=== PATIENT | male | born 1955 | race Caucasian/White ===

== ENCOUNTER → 2017-12-26 | Outpatient (CLI) | payer OTHER ==
[~2017-12-26] MED LIST: CHOL500050 PO; HYDR-3240 PO; LEVO137T2 PO; TAMS-11 PO; [UNRECOGNIZED DRUG - REMARK]
== END | disposition home or self-care (01) ==
LOC: CFH 09:56
PROVIDERS: ATTEND Family Medicine
DX: J44.9 Chronic obstructive pulmonary disease, unspecified (principal)
CPT/HCPCS: 71250

== ENCOUNTER 2019-02-18 16:27 | Inpatient (IN) | payer OTHER ==
[~2019-02-18] VITALS: Ht 177.8 cm; Wt 82.0 kg
--- NOTE | 2019-02-18 17:15 | NUR ---
Patient ambulates to room at this time from [facility]
[2019-02-18] MEDS ORDERED: SODIUM CHLORIDE 0.9% 1,000 ML IV ONE (17:29)
[2019-02-18] MEDS ORDERED: ONDANSETRON 2MG/ML, 2ML IVPush ONE (17:30)
[2019-02-18] MEDS ORDERED: ONDANSETRON 2MG/ML, 2ML ONE (17:40)
--- NOTE | 2019-02-18 17:49 | NUR ---
IVF INFUSING, PT MEDICATED WITH ZOFRAN PER ORDERS. UNDERSTANDS POC.
--- NOTE | 2019-02-18 18:00 | NUR ---
SPO2 DROPPED TO 89% ON RA. PT HAS HX COPD. PLACED ON O2 2L NC.
[2019-02-18] MEDS ORDERED: SODIUM CHLORIDE FLUSH 10ML SYR IVF ONE (18:30)
--- NOTE | 2019-02-18 18:35 | NUR ---
PT AMBULATED TO BR WITHOUT DIFFICULTY. INSTRUCTED ON CLEAN CATCH URINE SAMPLE.
[2019-02-18 18:37] LABS: ALANINE AMINOTRANSFERASE 39 U/L (12-78); ALBUMIN 3.1 g/dL (3.4-5.0); ANION GAP 9 mmol/L (5-15); CALCIUM 8.6 mg/dL (8.5-10.1); CHLORIDE 94 mmol/L (98-107)
[2019-02-18 18:40] LABS: ALKALINE PHOSPHATASE 72 U/L (45-117); BILIRUBIN,TOTAL 0.8 mg/dL (0.2-1.0); TOTAL PROTEIN 7.3 g/dL (6.4-8.2)
--- NOTE | 2019-02-18 19:05 | NUR ---
PT TO CT VIA [facility].
[2019-02-18 19:06] LABS: MICROSCOPIC INDICATED
[2019-02-18 19:12] LABS: MEAN CORPUSCULAR HEMOGLOBIN 30.9 pg (27.5-34.5); MEAN CORPUSCULAR HGB CONC 33.4 g/dL (33.2-36.2); MEAN CORPUSCULAR VOLUME 92.6 fL (81-97); MEAN PLATELET VOLUME 10.1 fL (7.4-10.4); PLATELET COUNT 153 x10^3/uL (130-400); RED BLOOD COUNT 5.87 x10^6/uL (4.38-5.82); RED CELL DISTRIBUTION WIDTH 13.9 % (9.4-14.8)
[2019-02-18 19:16] LABS: MD YES
[2019-02-18 19:19] LABS: CULTURE INDICATED? YES
[2019-02-18 19:20] LABS: BAND#(MANUAL) 1.54 x10^3/uL; BANDS%(MANUAL) 29 % (0-7); LYMPH#(MANUAL) 0.64 x10^3/uL (1-3.4); LYMPHS% (MANUAL) 12 % (22-44); MONOS#(MANUAL) 1.43 x10^3/uL (0.3-2.7); MONOS% (MANUAL) 27 % (2-9); REACTIVE LYMPHS # (MANUAL) 0.05 x10^3/uL (0-0); REACTIVE LYMPHS % (MANUAL) 1 % (0-0); SEG#(MANUAL) 1.64 x10^3/uL (1.8-6.8); SEGS% (MANUAL) 31 % (42-75)
[2019-02-18 19:21] LABS: <PLATELET ESTIMATE> ADEQUATE; <RBC MORPHOLOGY> NORMAL; LARGE PLATELETS 1+; PMNS WITH VACUOLES 1+
[2019-02-18] MEDS ORDERED: OMNIPAQUE 350 MG/ML, 100ML BOTTLE ONE (19:24)
--- NOTE | 2019-02-18 20:45 | NUR ---
ATTEMPTED NGT INSERTION TO R NARE BUT PT HAD ABOUT 800ML OF GREEN EMESIS AND DIDN'T TOLERATE INSERTION. ALLOWED PT TO REST FOR 10MIN, THEN NGT INSERTED TO L NARE WITHOUT DIFFICULTY, ATTACHED TO LIWS. AT BS.
--- NOTE | 2019-02-18 21:00 | NUR ---
XR AT BS.
--- NOTE | 2019-02-18 21:00 | NUR ---
HOSPITALIST AT BS.
[2019-02-18 21:30] VITALS: BP 132/86
[2019-02-18] MEDS ORDERED: morphine SULFATE 10 MG/ML, 1ML IVPush PRN (22:00)
[2019-02-18] MEDS ORDERED: PROMETHAZINE 25 MG/ML, 1ML IM PRN (22:00)
[2019-02-18] MEDS ORDERED: ONDANSETRON 2MG/ML, 2ML IVPush PRN (22:00)
[2019-02-18] MEDS ORDERED: BENZOCAINE AEROSOL SPRAY 20%, 60ML TP PRN (22:30)
[2019-02-19] MEDS: SODIUM CHLORIDE 0.9% 1,000 ML IV SCH ×4 (00:05→17:49)
[2019-02-19] MEDS: HEPARIN 5,000 UNITS/ML, 1ML SQ SCH ×3 (00:33→15:37)
[2019-02-19] MEDS: IPRATROPIUM 0.5 MG/2.5 ML INHA NPPB SCH ×4 (01:30→18:50)
[2019-02-19 02:18] VITALS: BP 125/79
[2019-02-19 06:04] LABS: MEAN CORPUSCULAR HEMOGLOBIN 31.1 pg (27.5-34.5); MEAN CORPUSCULAR HGB CONC 33.1 g/dL (33.2-36.2); MEAN CORPUSCULAR VOLUME 93.8 fL (81-97); MEAN PLATELET VOLUME 10.6 fL (7.4-10.4); PLATELET COUNT 166 x10^3/uL (130-400); RED BLOOD COUNT 5.55 x10^6/uL (4.38-5.82); RED CELL DISTRIBUTION WIDTH 13.9 % (9.4-14.8)
[2019-02-19 06:05] LABS: ANION GAP 12 mmol/L (5-15); CALCIUM 8.5 mg/dL (8.5-10.1); CHLORIDE 96 mmol/L (98-107)
[2019-02-19 06:09] LABS: CREATININE 1.09 mg/dL (0.7-1.3)
[2019-02-19 06:33] LABS: MD YES
[2019-02-19 06:39] LABS: BAND#(MANUAL) 1.57 x10^3/uL; BANDS%(MANUAL) 28 % (0-7); LYMPH#(MANUAL) 0.78 x10^3/uL (1-3.4); LYMPHS% (MANUAL) 14 % (22-44); MONOS#(MANUAL) 1.29 x10^3/uL (0.3-2.7); MONOS% (MANUAL) 23 % (2-9); REACTIVE LYMPHS # (MANUAL) 0.06 x10^3/uL (0-0); REACTIVE LYMPHS % (MANUAL) 1 % (0-0); SEGS% (MANUAL) 34 % (42-75)
[2019-02-19 06:40] LABS: <PLATELET ESTIMATE> ADEQUATE; <RBC MORPHOLOGY> NORMAL; SMALL PLATELETS 1+
[2019-02-19 06:54] VITALS: BP 124/74
[2019-02-19] MEDS: NICOTINE 14MG/24 HR PATCH.TD24 TD SCH (07:57)
[2019-02-19 12:18] VITALS: BP 130/73
[2019-02-19 20:19] VITALS: BP 121/65
[2019-02-20] MEDS: SODIUM CHLORIDE 0.9% 1,000 ML IV SCH ×3 (00:01→16:32)
[2019-02-20] MEDS: HEPARIN 5,000 UNITS/ML, 1ML SQ SCH ×3 (00:01→16:29)
[2019-02-20 02:11] VITALS: BP 120/70
[2019-02-20] MEDS: IPRATROPIUM 0.5 MG/2.5 ML INHA NPPB SCH ×4 (03:00→19:22)
[2019-02-20 07:47] VITALS: BP 129/67
[2019-02-20] MEDS: NICOTINE 14MG/24 HR PATCH.TD24 TD SCH (07:55)
[2019-02-20] MEDS: CEFTRIAXONE PMX 2GM/50ML 50 ML IV SCH (10:51)
[2019-02-20 13:46] VITALS: BP 139/73
[2019-02-20 19:54] VITALS: BP 139/77
[2019-02-21] MEDS: HEPARIN 5,000 UNITS/ML, 1ML SQ SCH ×3 (01:40→16:14)
[2019-02-21] MEDS: IPRATROPIUM 0.5 MG/2.5 ML INHA NPPB SCH ×4 (03:00→20:57)
[2019-02-21] MEDS: SODIUM CHLORIDE 0.9% 1,000 ML IV SCH ×3 (03:00→21:40)
[2019-02-21 03:59] VITALS: BP 127/68
[2019-02-21 05:52] LABS: ANION GAP 10 mmol/L (5-15); CALCIUM 7.2 mg/dL (8.5-10.1); CHLORIDE 110 mmol/L (98-107); CREATININE 0.58 mg/dL (0.7-1.3)
[2019-02-21 06:12] LABS: MEAN CORPUSCULAR HEMOGLOBIN 31.1 pg (27.5-34.5); MEAN CORPUSCULAR HGB CONC 33.3 g/dL (33.2-36.2); MEAN CORPUSCULAR VOLUME 93.4 fL (81-97); MEAN PLATELET VOLUME 9.8 fL (7.4-10.4); PLATELET COUNT 166 x10^3/uL (130-400); RED BLOOD COUNT 4.55 x10^6/uL (4.38-5.82); RED CELL DISTRIBUTION WIDTH 14.3 % (9.4-14.8)
[2019-02-21 07:10] VITALS: BP 120/62
[2019-02-21 07:23] LABS: MD YES
[2019-02-21 07:26] LABS: LYMPH#(MANUAL) 0.64 x10^3/uL (1-3.4); LYMPHS% (MANUAL) 10 % (22-44); METAMYELOCYTES# (MANUAL) 0.06 x10^3/uL (0-0); METAMYELOCYTES% (MANUAL) 1 % (0-1); MONOS#(MANUAL) 1.41 x10^3/uL (0.3-2.7); MONOS% (MANUAL) 22 % (2-9)
[2019-02-21 07:27] LABS: BAND#(MANUAL) 1.54 x10^3/uL; BANDS%(MANUAL) 24 % (0-7); SEG#(MANUAL) 2.75 x10^3/uL (1.8-6.8); SEGS% (MANUAL) 43 % (42-75)
[2019-02-21 07:28] LABS: <RBC MORPHOLOGY> NORMAL; TOXIC GRAN 1+
[2019-02-21 07:30] LABS: <PLATELET ESTIMATE> ADEQUATE; LARGE PLATELETS 1+
[2019-02-21] MEDS: NICOTINE 14MG/24 HR PATCH.TD24 TD SCH (08:00)
[2019-02-21] MEDS: CEFTRIAXONE PMX 2GM/50ML 50 ML IV SCH (10:51)
[2019-02-21 12:20] VITALS: BP 131/73
[2019-02-21 21:59] VITALS: BP 136/77
[2019-02-22 01:06] VITALS: BP 131/73
[2019-02-22] MEDS: HEPARIN 5,000 UNITS/ML, 1ML SQ SCH ×2 (01:20→08:37)
[2019-02-22] MEDS: IPRATROPIUM 0.5 MG/2.5 ML INHA NPPB SCH ×2 (03:00→06:34)
[2019-02-22] MEDS: SODIUM CHLORIDE 0.9% 1,000 ML IV SCH ×2 (04:20→11:00)
[2019-02-22 06:17] LABS: BASOPHILS # (AUTO) 0.02 x10^3/uL (0-0.1); BASOPHILS % (AUTO) 0 % (0-1); EOSINOPHILS % (AUTO) 1 % (1-7); LYMPHOCYTES # (AUTO) 0.84 x10^3/uL (1-3.4); LYMPHOCYTES % (AUTO) 12 % (22-44); MD NO; MEAN CORPUSCULAR HEMOGLOBIN 31.2 pg (27.5-34.5); MEAN CORPUSCULAR HGB CONC 33.6 g/dL (33.2-36.2); MEAN CORPUSCULAR VOLUME 92.9 fL (81-97); MEAN PLATELET VOLUME 9.9 fL (7.4-10.4); MONOCYTES # (AUTO) 1.43 x10^3/uL (0.2-0.8); MONOCYTES % (AUTO) 20 % (2-9); NEUTROPHILS # (AUTO) 4.79 x10^3/uL (1.8-6.8); NEUTROPHILS % (AUTO) 67 % (42-75); PLATELET COUNT 181 x10^3/uL (130-400); RED BLOOD COUNT 4.51 x10^6/uL (4.38-5.82); RED CELL DISTRIBUTION WIDTH 14.3 % (9.4-14.8)
[2019-02-22 06:36] LABS: ANION GAP 8 mmol/L (5-15); CALCIUM 7.4 mg/dL (8.5-10.1); CHLORIDE 110 mmol/L (98-107); CREATININE 0.62 mg/dL (0.7-1.3)
[2019-02-22 07:10] VITALS: BP 120/74
[2019-02-22] MEDS: NICOTINE 14MG/24 HR PATCH.TD24 TD SCH (07:18)
[2019-02-22] MEDS ORDERED: POTASSIUM CHLORIDE 40 MEQ in SODIUM CHLORIDE 0.9% 500 ML IV ONE (08:00)
[2019-02-22] MEDS: CEFTRIAXONE PMX 2GM/50ML 50 ML IV SCH (11:00)
[2019-02-22] MEDS ORDERED: NICO-486 TD (11:29)
[2019-02-22] MEDS ORDERED: OMEP-110 PO (11:29)
[2019-02-22] MEDS ORDERED: ONDA4TAB13 SL (11:29)
[2019-02-22] MEDS ORDERED: KETO10TA PO (11:29)
== END 2019-02-22 12:55 | disposition home or self-care (01) | DRG 388 ==
LOC: ED 20:27 → EDIP 20:45 → 4NOR 21:25 → DCLOUNGE 02-22 12:48
PROVIDERS: ADMIT Family Medicine; ATTEND Internal Medicine
PROC: 0D9670Z Drainage of Stomach with Drainage Device, Via Natural or Artificial Opening (ICD-10-PCS; principal; 2019-02-18)
DX: K56.52 Intestinal adhesions [bands] with complete obstruction (principal); N17.0 Acute kidney failure with tubular necrosis; E87.1 Hypo-osmolality and hyponatremia; E03.9 Hypothyroidism, unspecified; E78.00 Pure hypercholesterolemia, unspecified; E78.5 Hyperlipidemia, unspecified; E86.0 Dehydration; D72.825 Bandemia; F17.200 Nicotine dependence, unspecified, uncomplicated; J44.9 Chronic obstructive pulmonary disease, unspecified; N28.1 Cyst of kidney, acquired; N40.0 Benign prostatic hyperplasia without lower urinary tract symptoms; Z71.6 Tobacco abuse counseling; Z90.49 Acquired absence of other specified parts of digestive tract; Z93.3 Colostomy status; Z88.8 Allergy status to other drugs, medicaments and biological substances
CPT/HCPCS: 36415; 74018; 74250; 96361; 99285; J7644; 74177; 80048; 80053; 81001; 83690; 83735; 84100; 84443; 85025; 87040; 87086; 93005; 94640; 96374; G0378; J0696; J1644; J2405; J3480; Q9967; J7030; J7040